=== PATIENT | female | born 1975 | race Caucasian/White ===

== ENCOUNTER 2017-09-15 11:11 | Emergency (ER) | payer MEDICAID ==
[2017-09-15 11:24] VITALS: TEMP 98.6
[2017-09-15] MEDS ORDERED: methylPREDNISolone SOD SUCC 125 MG/2 ML VIAL IVP ONE (11:27)
[2017-09-15] MEDS ORDERED: ALBUTEROL 3 ML DEYVIAL IH ONE (11:27)
[2017-09-15] MEDS ORDERED: RANITIDINE 50 MG/2 ML VIAL IVP ONE (11:27)
[2017-09-15] MEDS ORDERED: LORazepam 2 MG/ML INJ ONE (11:27)
[2017-09-15] MEDS ORDERED: LORazepam 2 MG/ML INJ IVP ONE ×2 (11:28→11:38)
--- NOTE | 2017-09-15 11:37 | EDPHY ---
H & P Stated Complaint: stung by bees has anaphalactic allergy Time Seen by Provider: 09/15/17 11:27 HPI/ROS: CHIEF COMPLAINT: Diffuse erythematous rash, dyspnea after bee sting HISTORY OF PRESENT ILLNESS: The patient presents to the ED with complaints of a diffuse erythematous rash and the development of dyspnea following a bee sting. The patient does have a history of anaphylaxis. She did not self administer epinephrine prior to arrival. The patient reports her last severe reaction was several months ago. The patient denies any recent illness. She does have a history of anxiety and PTSD. She does endorse symptoms of fairly significant anxiety currently. The patient takes no regular prescription medications. She denies any recent illness, dietary changes or painful complaints. The patient reports that her dyspnea is moderate to severe in nature. REVIEW OF SYSTEMS: A comprehensive 10 point review of systems is otherwise negative aside from elements mentioned in the history of present illness. Source: Patient Exam Limitations: No limitations - Personal History LMP (Females 10-55): Hysterectomy Current Tetanus/Diphtheria Vaccine: Yes Current Tetanus Diphtheria and Acellular Pertussis (TDAP): Yes Tetanus Vaccine Date: < 10 years - Medical/Surgical History Hx Asthma: No Hx Chronic Respiratory Disease: No Hx Diabetes: No Hx Cardiac Disease: No Hx Renal Disease: No Hx Cirrhosis: No Hx Alcoholism: No Hx HIV/AIDS: No Hx Splenectomy or Spleen Trauma: No Other PMH: hysterectomy, anxiety, ptsd, depression - Social History Smoking Status: Current every day smoker - Physical Exam Exam: General Appearance: Alert, anxious, tachypneic Eyes: Pupils equal and round no pallor or injection ENT, Mouth: Mucous membranes moist Respiratory: No wheezing, decreased air movement noted bilaterally, tachypneic Cardiovascular: Regular rate and rhythm Gastrointestinal: Abdomen is soft and nontender, no masses, bowel sounds normal Neurological: A&O, normal motor function, normal sensory exam, normal cranial nerves Skin: Diffuse erythema noted Musculoskeletal: Neck is supple nontender Extremities: symmetrical, full range of motion Constitutional: Initial Vital Signs Temperature (C) 37 C 09/15/17 11:22 Heart Rate 115 H 09/15/17 11:22 Respiratory Rate 22 H 09/15/17 11:22 Blood Pressure 129/116 H 09/15/17 11:22 O2 Sat (%) 95 09/15/17 11:22 O2 Delivery Mode Room Air Allergies/Adverse Reactions: bee pollen Allergy (Verified 09/15/17 11:21) Penicillins Allergy (Verified 09/15/17 11:21) Home Medications: Medication Instructions Recorded EPINEPHrine [Epipen 0.3 MG] 0.3 mg IM ONCE #2 syr 09/15/17 Estrogens, Conjugated 09/15/17 Omeprazole 09/15/17 predniSONE [prednisone 20mg (RX)] 3 tab PO DAILY #15 tab 09/15/17 Medical Decision Making ED Course/Re-evaluation: The patient presents to the ED with severe allergic reaction with symptoms of dyspnea and generalized erythema. She was noted to be hemodynamically stable upon arrival. She was placed on a health care aide. The patient received IM epinephrine, IV Benadryl, IV Solu-Medrol and IV Pepcid. The patient also received albuterol. The patient was placed on a health care aide. She had close examinations in the emergency department over a 2 hour period. She was re-evaluated by myself at 1: 15 p.m.. She is sleeping in the room and in no acute distress. There has been no wheezing. There has been complete resolution of her erythematous rash. The patient will be discharged home with a refill for her epinephrine pen. She is given 4 day course of prednisone. She is advised to use Benadryl and Pepcid as needed for management of her symptoms. She should return to the ED for any worsening symptoms or other concerns. The patient did receive IV Ativan shortly after her initial treatment for symptoms of mild anxiety. 2:30 p.m.: Patient is re-examined and is in no acute distress. Vital signs are stable. No acute complaints. She will be discharged home with her . Differential Diagnosis: Differential diagnosis considered includes urticaria, angioedema, anaphylaxis, anxiety reaction - Data Points Medications Given: Discontinued Medications Albuterol (Proventil Neb) 3 ml IH EDNOW ONE Stop: 09/15/17 11:28 Last Admin: 09/15/17 11:30 Dose: 3 ml Diphenhydramine HCl (Benadryl Injection) 50 mg IVP EDNOW ONE Stop: 09/15/17 11:28 Last Admin: 09/15/17 11:30 Dose: 50 mg Epinephrine HCl (Epinephrine) 0.3 mg IM EDNOW ONE Stop: 09/15/17 11:28 Last Admin: 10/28/17 11:30 Dose: 0.3 mg Lorazepam (Ativan Injection) 1 mg IVP EDNOW ONE Stop: 09/15/17 11:29 Last Admin: 09/15/17 11:30 Dose: 1 mg Lorazepam (Ativan Injection) 1 mg IVP EDNOW ONE Stop: 09/15/17 11:39 Last Admin: 09/15/17 11:38 Dose: 1 mg Methylprednisolone Sodium Succinate (Solu-Medrol) 125 mg IVP EDNOW ONE Stop: 09/15/17 11:28 Last Admin: 09/15/17 11:29 Dose: 125 mg Ranitidine HCl (Zantac) 25 mg IVP EDNOW ONE Stop: 09/15/17 11:28 Last Admin: 09/15/17 11:30 Dose: 25 mg Departure - Departure Disposition: Home, Routine, Self-Care Clinical Impression: Acute anaphylaxis Condition: Good Instructions: Urticaria (ED) Additional Instructions: 1. Use epinephrine in the event of a recurrent severe reaction. 2. Prednisone as directed for next 4 days. 3. Return to the emergency department for any recurrence symptoms of a severe allergic reaction, chest pain, difficulty breathing or other concerns. 4. Take Benadryl and Pepcid as needed for any ongoing symptoms of rash and itching. Prescriptions: EPINEPHrine [Epipen 0.3 MG] 0.3 mg IM ONCE #2 syr predniSONE [prednisone 20mg (RX)] 3 tab PO DAILY #15 tab
[2017-09-15 13:29] VITALS: BP 104/60
[2017-09-15] MEDS ORDERED: RANITIDINE 50 MG/2 ML VIAL ONE (13:43)
[2017-09-15] MEDS ORDERED: ALBUTEROL 3 ML DEYVIAL ONE (13:43)
[2017-09-15] MEDS ORDERED: methylPREDNISolone SOD SUCC 125 MG/2 ML VIAL ONE (13:43)
[2017-09-15 14:47] VITALS: PULSE 92; RESP 14; O2SAT 96
== END 2017-09-15 14:47 | disposition home or self-care (01) ==
DX: T78.2XXA Anaphylactic shock, unspecified, initial encounter (principal); F17.200 Nicotine dependence, unspecified, uncomplicated
CPT/HCPCS: 96374; J0171; J1200; J2060; J2780